=== PATIENT | female | born 2000 | race Caucasian/White ===

== ENCOUNTER 2022-04-10 08:00 | Outpatient (CLI) | payer OTHER | END 2022-04-10 23:59 | disposition home or self-care (01) | LOC: LAB.N 08:00 | PROVIDERS: ATTEND Physician Assistant Medical | DX: N30.00 Acute cystitis without hematuria (principal) | CPT/HCPCS: 87086; 87181 ==

== ENCOUNTER 2022-07-10 08:00 | Outpatient (CLI) | payer OTHER ==
[2022-07-10 19:10] LABS: MEAN CORPUSCULAR VOLUME 92.3 fL (81.0-99.0); RED CELL DISTRIBUTION WIDTH 11.9 % (12.0-15.0)
[2022-07-10 19:13] LABS: BASOPHILS % (AUTO) 0.4 %; EOSINOPHILS # (AUTO) 0.2 10^3/uL (0.0-0.7); EOSINOPHILS % (AUTO) 1.6 %; HCT - HEMATOCRIT 38.2 % (37.0-47.0); HGB - HEMOGLOBIN 12.4 g/dL (12.0-16.0); LYMPHOCYTES # (AUTO) 1.4 10^3/uL (1.5-3.5); LYMPHOCYTES % (AUTO) 13.2 %; MEAN CORPUSCULAR HGB CONC 32.5 g/dL (32.0-36.0); MEAN PLATELET VOLUME 9.7 fL (7.9-10.8); MONOCYTES # (AUTO) 0.8 10^3/uL (0.0-1.0); MONOCYTES % (AUTO) 7.2 %; NEUTROPHILS # (AUTO) 8.2 10^3/uL (1.5-6.6); NEUTROPHILS % (AUTO) 77.3 %; PLT - PLATELET COUNT 381 10^3/uL (130-450); RED BLOOD COUNT 4.14 10^6/uL (4.20-5.40); WHITE BLOOD COUNT 10.6 x10^3/uL (4.8-10.8)
[2022-07-10 19:27] LABS: ALBUMIN 3.9 g/dL (3.2-5.5); ALKALINE PHOSPHATASE 39 IU/L (42-121); ALT ALANINE AMINOTRANSFERASE < 10 IU/L (10-60); AST ASPARTATE AMINOTRANSFERASE 15 IU/L (10-42); BILIRUBIN,TOTAL 0.4 mg/dL (0.2-1.0); BUN - BLOOD UREA NITROGEN 11 mg/dL (6-20); CALCIUM 9.1 mg/dL (8.5-10.3); CARBON DIOXIDE - CO2 27 mmol/L (21-32); CHLORIDE 102 mmol/L (101-111); CREATININE 0.6 mg/dL (0.4-1.0); CRP - C-REACTIVE PROTEIN 5.1 mg/dL (0-1.0); GFR - MDRD 127 (>89); GLUCOSE 87 mg/dL (70-100); LIPASE 47 U/L (22-51); POTASSIUM 3.4 mmol/L (3.5-5.0); SODIUM 137 mmol/L (135-145); TOTAL PROTEIN 7.7 g/dL (6.7-8.2)
== END 2022-07-10 23:59 | disposition home or self-care (01) ==
LOC: LAB.N 08:00
PROVIDERS: ATTEND Registered Nurse
DX: N30.00 Acute cystitis without hematuria (principal); R10.31 Right lower quadrant pain
CPT/HCPCS: 36415; 80053; 83690; 85025; 86140; 87077; 87086

== ENCOUNTER 2022-07-11 08:00 | Outpatient (CLI) | payer OTHER ==
[2022-07-11 22:16] LABS: BACTERIAL VAGINOSIS DNA NEGATIVE (NEGATIVE); CANDIDA GLABRATA DNA NEGATIVE (NEGATIVE); CANDIDA GROUP DNA NEGATIVE (NEGATIVE); CANDIDA KRUSEI DNA NEGATIVE (NEGATIVE); TRICHOMONAS VAGINALIS DNA NEGATIVE (NEGATIVE)
[2022-07-11 23:07] LABS: NEISSERIA GONORRHOEAE DNA NEGATIVE (NEGATIVE)
[2022-07-11 23:29] LABS: CHLAMYDIA TRACHOMATIS DNA POSITIVE (NEGATIVE)
== END 2022-07-11 23:59 | disposition home or self-care (01) ==
LOC: LAB.N 08:00
PROVIDERS: ATTEND Family Medicine
DX: R10.2 Pelvic and perineal pain (principal)
CPT/HCPCS: 81514; 87491; 87591; 87661

== ENCOUNTER 2023-06-03 07:10 | Emergency (ER) | payer OTHER ==
[2023-06-03] MEDS: SODIUM CHLORIDE 0.9% 1,000 ML IV STA (07:43)
[2023-06-03 07:59] LABS: BASOPHILS % (AUTO) 0.7 %; EOSINOPHILS # (AUTO) 0.2 10^3/uL (0.0-0.7); EOSINOPHILS % (AUTO) 3.3 %; HGB - HEMOGLOBIN 13.3 g/dL (12.0-16.0); LYMPHOCYTES # (AUTO) 1.7 10^3/uL (1.5-3.5); LYMPHOCYTES % (AUTO) 35.9 %; MEAN CORPUSCULAR HEMOGLOBIN 31.1 pg (27.0-31.0); MEAN CORPUSCULAR HGB CONC 33.3 g/dL (32.0-36.0); MEAN CORPUSCULAR VOLUME 93.7 fL (81.0-99.0); MEAN PLATELET VOLUME 9.5 fL (7.9-10.8); MONOCYTES # (AUTO) 0.4 10^3/uL (0.0-1.0); MONOCYTES % (AUTO) 7.6 %; NEUTROPHILS # (AUTO) 2.4 10^3/uL (1.5-6.6); NEUTROPHILS % (AUTO) 52.3 %; PLT - PLATELET COUNT 283 10^3/uL (130-450); RED BLOOD COUNT 4.27 10^6/uL (4.20-5.40); RED CELL DISTRIBUTION WIDTH 12.4 % (12.0-15.0); WHITE BLOOD COUNT 4.6 x10^3/uL (4.8-10.8)
[2023-06-03 08:12] LABS: ALBUMIN 4.5 g/dL (3.2-5.5); ALKALINE PHOSPHATASE 32 IU/L (42-121); ALT ALANINE AMINOTRANSFERASE 7 IU/L (10-60); AST ASPARTATE AMINOTRANSFERASE 16 IU/L (10-42); BILIRUBIN,TOTAL 0.7 mg/dL (0.2-1.0); BUN - BLOOD UREA NITROGEN 10 mg/dL (6-20); CALCIUM 9.1 mg/dL (8.5-10.3); CARBON DIOXIDE - CO2 27 mmol/L (21-32); CHLORIDE 106 mmol/L (101-111); CREATININE 0.7 mg/dL (0.6-1.3); ETOH - ETHANOL < 10.0 mg/dL; GFR - MDRD 106 (>89); GLUCOSE 81 mg/dL (74-104); LIPASE 45 U/L (11-82); POTASSIUM 3.7 mmol/L (3.5-4.5); SODIUM 138 mmol/L (135-145); TOTAL PROTEIN 6.8 g/dL (6.4-8.9)
[2023-06-03 08:17] LABS: ACETAMINOPHEN 83.8 ug/mL
--- NOTE | 2023-06-03 08:19 | ED Physician Documentation ---
History of Present Illness - Stated complaint Stated Complaint: ABD PX/NAUSEA - Chief complaint Chief Complaint: MHE - History obtained from History obtained from: Patient - Additonal information Additional information: The patient comes to the emergency department with chief complaint of abdominal pain after a Tylenol ingestion with alcohol overnight. The patient states that she has been drinking alcohol for approximately the past 4 days to try to help herself get to sleep. She states she was on leave and traveling and that her sleep schedule was interrupted and she has been having insomnia recently. The patient states she drank roughly "half a bottle" of hard alcohol, though she cannot verify exactly how big the bottle was or what kind of alcohol. She states that she was up around 2-3 o'clock this morning and was feeling suicidal and took a handful of Tylenol 500 mg tabs. She then ended up falling asleep and when she woke up around 630 this morning, noticed pain in her mid and lower abdomen. She states at that point in time, she took the Tylenol bottle which she thinks may have been new and counted the number of pills left, and estimates she took 20-24 of the tablets for a total ingestion of 10 to 12 g. She denies any urinary symptoms. No changes in her bowel habits. She has been slightly nauseated. The patient is not known to be . She has a history of depression and suicidal ideation/attempts previously. [place] and that she has never had an inpatient stay for mental health issues. The patient states that right now, she is going through some relationship difficulties and that is what seems to be making her depression worse. The patient states she does have support in terms of friends and family, but she does not like to talk to them about the sorts of issues and so she has not been confiding. She is not currently feeling suicidal. No other complaints at this time. PD PAST MEDICAL HISTORY - Past Medical History Past Medical History: No - Past Surgical History Past Surgical History: No - Present Medications Home Medications: Ambulatory Orders Medication Instructions Recorded Confirmed No Known Home Medications 06/03/23 06/03/23 - Allergies Allergies/Adverse Reactions: Allergies Allergy/AdvReac Type Severity Reaction Status Date / Time No Known Drug Allergies Allergy Verified 06/03/23 07:23 - Social History Does the pt smoke?: No Smoking Status: Never smoker Does the pt drink ETOH?: Yes ETOH Use: Liquor Does the pt have substance abuse?: No - Immunizations Immunizations are current?: Yes PD ED PE NORMAL - Vitals Vital signs reviewed: Yes - General General: Alert and oriented X 3, No acute distress, Well developed/nourished - HEENT HEENT: Atraumatic, PERRL, EOMI, Moist mucous membranes - Neck Neck: Supple, no meningeal sign - Cardiac Cardiac: RRR, No murmur - Respiratory Respiratory: No respiratory distress, Clear bilaterally - Abdomen Abdomen: Soft, Non distended, Other (Periumbilical tenderness with bilateral lower quadrant tenderness, mild, no rebound or guarding.) - Derm Derm: Normal color, Warm and dry, No rash - Extremities Extremities: No deformity, No edema - Neuro Neuro: Alert and oriented X 3, 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7 MCH 31.1 H MCHC 33.3 RDW 12.4 Plt Count 283 MPV 9.5 Neut # (Auto) 2.4 Lymph # (Auto) 1.7 Pettis # (Auto) 0.4 Eos # (Auto) 0.2 Baso # (Auto) 0.0 Absolute Nucleated RBC 0.00 Nucleated RBC % 0.0 Sodium 138 Potassium 3.7 Chloride 106 Carbon Dioxide 27 Anion Gap 5.0 L BUN 10 Creatinine 0.7 Estimated GFR (MDRD) 106 Glucose 81 Calcium 9.1 Total Bilirubin 0.7 AST 16 ALT 7 L Alkaline Phosphatase 32 L Total Protein 6.8 Albumin 4.5 Globulin 2.3 Albumin/Globulin Ratio 2.0 Lipase 45 Urine HCG, Qual Salicylates < 1.5 Urine Opiates Screen Ur Oxycodone Screen Urine Methadone Screen Ur Propoxyphene Screen Acetaminophen 83.8 H* Ur Barbiturates Screen Ur Tricyclics Screen Ur Phencyclidine Scrn Ur Amphetamine Screen U Methamphetamines Scrn U Benzodiazepines Scrn Urine Cocaine Screen U Cannabinoids Screen Ethyl Alcohol < 10.0 SARS-CoV-2 (PCR) 06/03/23 06/03/23 06/03/23 07:45 07:45 11:14 WBC RBC Hgb Hct MCV MCH MCHC RDW Plt Count MPV Neut # (Auto) Lymph # (Auto) Pettis # (Auto) Eos # (Auto) Baso # (Auto) Absolute Nucleated RBC Nucleated RBC % Sodium Potassium Chloride Carbon Dioxide Anion Gap BUN Creatinine Estimated GFR (MDRD) Glucose Calcium Total Bilirubin AST ALT Alkaline Phosphatase Total Protein Albumin Globulin Albumin/Globulin Ratio Lipase Urine HCG, Qual NEGATIVE Salicylates Urine Opiates Screen NEGATIVE Ur Oxycodone Screen NEGATIVE Urine Methadone Screen NEGATIVE Ur Propoxyphene Screen NEGATIVE Acetaminophen 61.5 H* Ur Barbiturates Screen NEGATIVE Ur Tricyclics Screen NEGATIVE Ur Phencyclidine Scrn NEGATIVE Ur Amphetamine Screen NEGATIVE U Methamphetamines Scrn NEGATIVE U Benzodiazepines Scrn POSITIVE H Urine Cocaine Screen NEGATIVE U Cannabinoids Screen NEGATIVE Ethyl Alcohol SARS-CoV-2 (PCR) 06/03/23 12:04 WBC RBC Hgb Hct MCV MCH MCHC RDW Plt Count MPV Neut # (Auto) Lymph # (Auto) Pettis # (Auto) Eos # (Auto) Baso # (Auto) Absolute Nucleated RBC Nucleated RBC % Sodium Potassium Chloride Carbon Dioxide Anion Gap BUN Creatinine Estimated GFR (MDRD) Glucose Calcium Total Bilirubin AST ALT Alkaline Phosphatase Total Protein Albumin Globulin Albumin/Globulin Ratio Lipase Urine HCG, Qual Salicylates Urine Opiates Screen Ur Oxycodone Screen Urine Methadone Screen Ur Propoxyphene Screen Acetaminophen Ur Barbiturates Screen Ur Tricyclics Screen Ur Phencyclidine Scrn Ur Amphetamine Screen U Methamphetamines Scrn U Benzodiazepines Scrn Urine Cocaine Screen U Cannabinoids Screen Ethyl Alcohol SARS-CoV-2 (PCR) NOT DETECTED PD Medical Decision Making - ED course Complexity details: reviewed results, re-evaluated patient, considered differential, d/w patient ED course: The patient presented to the emergency department approximately 5 hours after her estimated time of ingestion of Tylenol. She was found to have a completely negative alcohol level and an acetaminophen level of 83. The rest of the patient's labs were unremarkable. The case was discussed with poison control, and they felt that the patient's serum acetaminophen level, in light of the amount of time that had passed, was nontoxic and the patient was deemed medically clear. The patient was evaluated by social services specialist and ultimately, it was felt she should be transferred for inpatient evaluation and care to a mental health facility. The patient's repeat Tylenol level was done and found to be 61.5 approximately chest x-ray 3 hours after the initial level. The case was discussed with Dr. Hernandez at [facility] and he did agree to accept the patient in transfer. Departure - Departure Disposition: 65 Psych Hosp/Unit DC/Xfer Clinical Impression: Attempted suicide Depression Qualifiers: Depression Type: major depressive disorder Major depression recurrence: rec urrent Active/Remission status: currently active Major depression episode severity: moderate Qualified Code(s): F33.1 - Major depressive disorder, recurrent, moderate Medication overdose Qualifiers: Encounter type: initial encounter Injury intent: intentional self-harm Qualified Code(s): T50.902A - Poisoning by unspecified drugs, medicaments and biological substances, intentional self-harm, initial encounter Condition: Serious Forms: PCP List
[2023-06-03 08:22] LABS: MUDS CUTOFF CONCENTRATIONS CUTOFF CONC BELOW:
[2023-06-03 08:27] LABS: HCG UR QUAL NEGATIVE
[2023-06-03] MEDS: ONDANSETRON 4 MG/2 ML VIAL IVP STA (08:29)
[2023-06-03 08:52] LABS: AMPHETAMINE SCREEN,URINE NEGATIVE (NEGATIVE); BARBITURATE SCREEN,UR NEGATIVE (NEGATIVE); BENZODIAZEPINES SCREEN, URINE POSITIVE (NEGATIVE); COCAINE SCREEN URINE NEGATIVE (NEGATIVE); METHADONE SCREEN, URINE NEGATIVE (NEGATIVE); METHAMPHETAMINES SCREEN, URINE NEGATIVE (NEGATIVE); OPIATE SCREEN, URINE NEGATIVE (NEGATIVE); OXYCODONE SCREEN, URINE NEGATIVE (NEGATIVE); PROPOXYPHENE SCREEN, URINE NEGATIVE (NEGATIVE); THC CANNABINOID SCREEN, URINE NEGATIVE (NEGATIVE); TRICYCLIC ANTIDEPRESSANT,URINE NEGATIVE (NEGATIVE)
[2023-06-03 16:33] VITALS: BP 100/65; O2SAT 100
== END 2023-06-03 18:08 ==
LOC: ED 07:10
DX: T39.1X2A Poisoning by 4-Aminophenol derivatives, intentional self-harm, initial encounter (principal); F33.1 Major depressive disorder, recurrent, moderate; Z11.52 Encounter for screening for COVID-19
CPT/HCPCS: 36415; 80053; 80306; 80307; 80320; 80329; 81025; 83690; 85025; 87635; 96374; 99284

== ENCOUNTER 2023-07-09 17:11 | Emergency (ER) | payer OTHER ==
[2023-07-09 17:47] VITALS: O2SAT 100
[2023-07-09 19:19] VITALS: BP 118/71
--- NOTE | 2023-07-09 19:33 | ED Physician Documentation ---
PD HPI MHE - Stated complaint Stated Complaint: MHE - Chief complaint Chief Complaint: MHE - History obtained from History obtained from: Patient, Other ([employer] chief) - History of Present Illness Primary symptom: Depression Pain level max: 0 Pain level now: 0 Contributing factors: No: Substance abuse - ETOH, Substance abuse - drugs Recently seen: Not recently seen - Additional information Additional information: 23-year-old female sent in by the [employer] today. She is here with her chief. Reportedly she is from the [employer] and during her separation physical they asked her if she had ever felt suicidal in her life. She stated yes and so they called her command to bring her here. The patient adamantly denies feeling suicidal currently. Has no plans of self-harm. Is getting ready to go back in live with her family in [place] which she is excited about. She states that she was recently admitted to [facility] again for suicidal ideation. She states she has been compliant with all of her aftercare, behavioral therapy and is living in the [facility] where she feels safe. Review of Systems Constitutional: denies: Fever, Chills GI: denies: Vomiting, Diarrhea : denies: Now [facility] PD PAST MEDICAL HISTORY - Past Medical History Past Medical History: Yes Psych: Depression, Anxiety - Past Surgical History Past Surgical History: No - Present Medications Home Medications: Ambulatory Orders Medication Instructions Recorded Confirmed FLUoxetine [PROzac] 10 mg PO DAILY 07/09/23 07/09/23 Mirtazapine 15 mg PO HS 07/09/23 07/09/23 - Allergies Allergies/Adverse Reactions: Allergies Allergy/AdvReac Type Severity Reaction Status Date / Time No Known Drug Allergies Allergy Verified 07/09/23 17:42 - Social History Does the pt smoke?: Yes Smoking Status: Current every day smoker Does the pt drink ETOH?: Yes Does the pt have substance abuse?: No - Immunizations Immunizations are current?: Yes PD ED PE NORMAL - Vitals Vital signs reviewed: Yes - General General: Alert and oriented X 3, No acute distress - HEENT HEENT: PERRL, Moist mucous membranes - Neck Neck: Supple, no meningeal sign - Cardiac Cardiac: RRR, Strong equal pulses - Respiratory Respiratory: No respiratory distress, Clear bilaterally - Abdomen Abdomen: Soft, Non tender, Non distended - Derm Derm: Warm and dry - Extremities Extremities: No edema - Neuro Neuro: Alert and oriented X 3 - Psych Psych: Normal mood, Normal affect Results - Vitals Vitals: Vital Signs - 24 hr 07/09/23 07/09/23 17:28 19:17 Temperature 36.1 C L 36.8 C Heart Rate 67 90 Respiratory 16 16 Rate Blood Pressure 107/77 118/71 O2 Saturation 100 100 Oxygen O2 Source Room air PD Medical Decision Making - ED course Complexity details: considered differential, d/w patient (and chief) ED course: 23-year-old female here with her chief. She actively denies being suicidal. She states she was not suicidal today. She has no plan to harm herself. She is forward thinking with goals. Her chief also states that she is not suicidal and he does not feel that she is currently suicidal. He states that he believes there was a misunderstanding with the provider who is doing her physical today. As the patient is able to contract for safety and has no evidence of suicidality at this time. Did not make any suicidal statements to anyone. Will have her follow-up with her PCP for further care. Patient counseled regarding signs and symptoms for which I believe and urgent re-evaluation would be necessary. Patient with good understanding of and agreement to plan and is comfortable going home at this time This document was made in part using voice recognition software. While efforts a re made to proofread this document, sound alike and grammatical errors may occur. Departure - Departure Disposition: 01 Home, Self Care Clinical Impression: Depression Qualifiers: Depression Type: unspecified Qualified Code(s): F32.A - Depression, unspecified Condition: Good Instructions: ED Depression Follow-Up: EDITH DAVIES MD [Primary Care Provider] - Comments: You have indicated that you have had prior depression and suicidal ideation but you do not have suicidal ideation or depression currently. You have indicated that you are safe to go home and that you have no thoughts of harming yourself currently. Please follow-up with your doctor for further care. Crisis Line and is available to talk to someone [email or web address] is also available to chat with someone online if you prefer. There are also many resources on this website and apps for your phone to help with your mental health You can also text the word START to [phone] to chat with someome via text. Forms: PCP List Discharge Date/Time: 07/09/23 19:44
== END 2023-07-09 19:44 | disposition home or self-care (01) ==
LOC: ED 17:11
DX: F32.A Depression, unspecified (principal); F17.200 Nicotine dependence, unspecified, uncomplicated
CPT/HCPCS: 99282; 99283